=== PATIENT | female | born 1945 | race Caucasian/White ===

== ENCOUNTER 2021-02-22 02:25 | Outpatient (CLI) | payer MEDICARE, OTHER, SELFPAY | END 2021-02-22 02:26 | disposition home or self-care (01) | PROVIDERS: PCP Student in an Organized Health Care Education/Training Program; Visit Provider Student in an Organized Health Care Education/Training Program | DX: R51.9 Headache, unspecified (principal) | CPT/HCPCS: 94762 ==

== ENCOUNTER → 2022-12-19 01:04 | Outpatient (CLI) | payer MEDICARE, SELFPAY ==
--- NOTE | 2022-12-19 10:15 | DI.DEXA_ITS ---
Exam(s) XR DEXA BONE DENSITY W/WO ANNE EXAM: XR DEXA BONE DENSITY W/WO ANNE CLINICAL HISTORY: Evaluate bone density,screening for osteoporosis in postmenopausal woman, TECHNIQUE: [employer] densitometer analysis of left hip and right forearm. Lateral survey i mage of the thoracic and lumbar spine. COMPARISON: No exams were available for comparison FINDINGS: Lateral view of the thoracic and lumbar spine shows no evidence of compression fractures. Posterio r fusion hardware noted at L4-5. Spine was not analyzed. Spinal stimulator noted in the mid thoraci c region. Bone mineral density measurements of the left hip correspond to a total T-score of -0.3. The femora l neck T-score is 0.7, in the normal range.. Theright forearm bone mineral density measurements correspond to a T-score of the distal 3rd of -2.1 , in the osteopenic range. IMPRESSION: Normal bone mineral density of the hip. Osteopenia of the forearm.
== END ==
PROVIDERS: PCP Student in an Organized Health Care Education/Training Program; Visit Provider Student in an Organized Health Care Education/Training Program
DX: Z13.820 Encounter for screening for osteoporosis (principal); Z78.0 Asymptomatic menopausal state; M81.0 Age-related osteoporosis without current pathological fracture
CPT/HCPCS: 77080

== ENCOUNTER → 2023-09-23 12:07 | Outpatient (BNVA) | payer MEDICARE, SELFPAY | PROVIDERS: PCP Student in an Organized Health Care Education/Training Program; Referring Provider Student in an Organized Health Care Education/Training Program; Visit Provider Student in an Organized Health Care Education/Training Program | DX: J44.9 Chronic obstructive pulmonary disease, unspecified (principal); C50.919 Malignant neoplasm of unspecified site of unspecified female breast; C79.51 Secondary malignant neoplasm of bone; G47.34 Idiopathic sleep related nonobstructive alveolar hypoventilation; G47.61 Periodic limb movement disorder | CPT/HCPCS: 99214 ==

== ENCOUNTER → 2023-10-29 15:30 | Outpatient (CLI) | payer MEDICARE, SELFPAY ==
--- NOTE | 2023-10-29 15:45 | DI.RAD_ITS ---
Exam(s) XR CHEST 2V PA LATERAL EXAM: XR CHEST 2V PA LATERAL CLINICAL HISTORY: chemo patient, low grade T, cough R05.9 COUGH R09.89 RESPIRATORY SYMPTOMS TECHNIQUE: 2D digital imaging was performed of the chest. Two images were obtained. PA and lateral views were obtained. COMPARISON: No exams were available for comparison FINDINGS: MEDIASTINUM: Normal. HEART: Normal. PULMONARY VASCULATURE: Normal. LUNGS: No focal consolidating infiltrates are present. There is an ovoid density seen at the lateral aspect of the left hemithorax corresponding to a nodule projected over the anterior aspect of the he art on the lateral view. This may be intraparenchymal versus related to the rib. There are no prior s for comparison. PLEURAL SPACE: No pleural effusion or pneumothorax. BONE:Within normal limits for the patient's age. OTHER FINDINGS:There is a nerve stimulator device. IMPRESSION: 1. No focal infiltrates are present. 2. Ovoid density projected of the lateral aspect of the hemithorax on the AP view and anteriorly loca massimo on the lateral view. This may be associated with the rib versus an intraparenchymal mass. If th ere are prior films, they may be submitted for comparison. Alternatively, a noncontrast CT scan of t he chest may be obtained for further evaluation. DATA REPOSITORY: RADIATION DOSE DELIVERED:
== END ==
PROVIDERS: PCP Student in an Organized Health Care Education/Training Program; Visit Provider Nurse Practitioner
DX: R05.9 Cough, unspecified (principal); R09.89 Other specified symptoms and signs involving the circulatory and respiratory systems
CPT/HCPCS: 71046

== ENCOUNTER 2023-10-29 16:32 | Outpatient (REF) | payer MEDICARE, SELFPAY ==
[2023-10-29 20:46] LABS: COVID-19 PCR Negative (Negative); Influenza A PCR Negative (Negative); Influenza B PCR Negative (Negative); RSV PCR Negative (Negative)
[2023-10-29 20:47] LABS: Source NASOPHARYNX
== END 2023-10-29 16:33 | disposition home or self-care (01) ==
LOC: LBN 16:32
PROVIDERS: PCP Student in an Organized Health Care Education/Training Program; Visit Provider Nurse Practitioner
DX: R50.9 Fever, unspecified (principal); R09.89 Other specified symptoms and signs involving the circulatory and respiratory systems; R05.9 Cough, unspecified; R10.2 Pelvic and perineal pain
CPT/HCPCS: 87637

== ENCOUNTER 2023-11-10 15:00 | Outpatient (REF) | payer MEDICARE, SELFPAY | END 2023-11-10 15:01 | disposition home or self-care (01) | LOC: LBN 15:00 | PROVIDERS: PCP Student in an Organized Health Care Education/Training Program; Visit Provider Family Medicine | DX: R30.0 Dysuria (principal); R39.89 Other symptoms and signs involving the genitourinary system; R10.9 Unspecified abdominal pain | CPT/HCPCS: 87086 ==

== ENCOUNTER 2023-11-28 12:29 | Outpatient (CLI) | payer MEDICARE, SELFPAY ==
--- NOTE | 2023-11-28 12:15 | DI.RAD_ITS ---
Exam(s) XR CHEST 2V PA LATERAL EXAM: XR CHEST 2V PA LATERAL CLINICAL HISTORY: R05.9 Cough,B99.9 Infectious DX unspecified,eval for any sign of infection TECHNIQUE: 2D digital imaging was performed. Two views. COMPARISON: CR XR CHEST 2V PA LATERAL from 10/29/2023 FINDINGS: HEART: Normal size. Aorta: Not dilated. PULMONARY VASCULATURE: Normal. MEDIASTINUM: Unremarkable. LUNGS: Clear. PLEURAL SPACE: No pleural effusion or pneumothorax. BONE:Unremarkable for age. SOFT TISSUES: Spinal stimulator lead in mid thoracic spine. Surgical clips left anterior chest wall. IMPRESSION: No acute abnormality. DATA REPOSITORY: RADIATION DOSE DELIVERED:
--- NOTE | 2023-11-28 12:15 | DI.RAD_ITS ---
Exam(s) XR HIP LT COMPLETE AP PELVIS EXAM: XR HIP LT COMPLETE AP PELVIS CLINICAL HISTORY: M25.552 Pain LT hip, r/o mets - hx breast ca w/alvaro mets to iliacs. TECHNIQUE: 2D digital imaging was performed. Two views. COMPARISON: CR XR DEXA BONE DENSITY W/WO ANNE from 12/19/2022 FINDINGS: BONES: No acute fracture is present. Lytic lesion seen on lateral view in upper left femoral shaft. It measures roughly 5 x 1.5 cm. No additional lytic lesions are visible. Stimulator device overli es right iliac crest. Posterior fusion hardware noted at L4-5. JOINTS: No dislocation present. The hip joint spaces are maintained. SOFT TISSUE: Normal. IMPRESSION: Lytic lesion upper left femoral shaft. No evidence of pathologic fracture. DATA REPOSITORY: RADIATION DOSE DELIVERED:
== END 2023-11-28 12:49 ==
LOC: DI 12:30
PROVIDERS: PCP Student in an Organized Health Care Education/Training Program; Visit Provider Nurse Practitioner Family
DX: M89.8X8 Other specified disorders of bone, other site (principal); R05.9 Cough, unspecified
CPT/HCPCS: 36415; 80048; 80061; 82306; 84145; 87040; 71046; 73502; 81003; 81015; 84443; 85025

== ENCOUNTER 2023-11-28 12:30 | Outpatient (CLI) | payer MEDICARE, SELFPAY ==
[2023-11-28 10:30] LABS: Absolute Basophil Count 0.02 10^3/uL (0.0-0.2); Absolute Lymphocyte Count 0.65 10^3/uL (1.2-3.4); Absolute Monocyte Count 0.25 10^3/uL (0.1-0.8); Absolute Neutrophil Count 0.78 10^3/uL (1.2-6.7); Basophils % 1.2 %; HCT 28.1 % (36.0-46.0); HGB 9.4 g/dL (11.2-15.7); Lymphocytes % 38.2 %; MCH 32.3 pg (27.0-33.0); MCHC 33.5 % (32.0-36.0); MCV 97 fL (80-95); MPV 8.9 fL (8.0-11.0); Monocytes % 14.7 %; Neutrophils % 45.9 %; Platelet Count 179 10^3/uL (130-400); RBC 2.91 10^6/uL (3.93-5.22); RDW 17.4 % (11.7-14.6); RDW-SD 57.3 fL
[2023-11-28 10:30] LABS: Bilirubin Negative (Negative); Blood Negative (Negative); Clarity Clear (Clear); Glucose Negative (Negative); Ketones Negative (Negative); Leukocyte Esterase Negative (Negative); Nitrite Negative (Negative); Specific Gravity >= 1.030 (1.005-1.025); Urobilinogen 0.2 mg/dL (Up to 0.2); pH 5.5 (5-8)
[2023-11-28 10:43] LABS: Diff Comment Agrees w/ Instrument; RBC Morphology Normal
[2023-11-28 10:52] LABS: Bacteria Few HPF (Negative); Epithelial Cells Moderate HPF (Negative); RBC 0-2 HPF (0-2)
[2023-11-28 10:53] LABS: C & S Indicated? No; Casts 0-2 Hyaline LPF (Negative); Crystals Rare Calcium Oxalate HPF (Negative); Mucus Negative (Negative)
[2023-11-28 11:04] LABS: Procalcitonin < 0.1 ng/mL
[2023-11-28 11:08] LABS: Anion Gap 7.2 mmol/L (3-11); BUN 19 mg/dL (7-18); CO2 28.8 mmol/L (21.0-32.0); CREATININE 1.2 mg/dL (0.55-1.02); Calcium 9.7 mg/dL (8.5-10.1); Calculated LDL 68 mg/dL (<100); Chloride 108 mmol/L (98-107); Cholesterol 148 mg/dL (<200); Estimated GFR 46.05 (mL/min/1.73m2); Glucose 110 mg/dL (74-106); HDL Cholesterol 46 mg/dL (40-60); Potassium 3.4 mmol/L (3.5-5.1); Sodium 144 mmol/L (136-145); TSH (W/Ref FT4) 3.46 uIU/mL (0.36-3.74); Triglyceride 172 mg/dL (<150); Vitamin D 25 Total 42.9 ng/mL (30-100)
== END 2023-11-28 12:31 | disposition home or self-care (01) ==
LOC: LBO 12:31
PROVIDERS: PCP Student in an Organized Health Care Education/Training Program; Visit Provider Student in an Organized Health Care Education/Training Program
DX: Z79.899 Other long term (current) drug therapy (principal); E87.1 Hypo-osmolality and hyponatremia; Z91.89 Other specified personal risk factors, not elsewhere classified; K90.9 Intestinal malabsorption, unspecified; M85.80 Other specified disorders of bone density and structure, unspecified site; B99.9 Unspecified infectious disease; R39.9 Unspecified symptoms and signs involving the genitourinary system; R50.9 Fever, unspecified
CPT/HCPCS: 36415; 80048; 80061; 82306; 84145; 87040; 81003; 81015; 84443; 85025

== ENCOUNTER 2023-11-30 14:53 | Emergency (ER) | payer MEDICARE, SELFPAY ==
[2023-11-30 14:57] VITALS: BP 105/69; PULSE 93; RESP 15; TEMP 37.7; O2SAT 88
--- NOTE | 2023-11-30 15:15 | DI.CT_ITS ---
Exam(s) CT PELVIC WO EXAM: CT PELVIC WO CLINICAL HISTORY: L. hip/butt pain, active breast Ca, eval fx, mets. TECHNIQUE: Imaging Protocol: Axial computed tomography images with coronal and sagittal reformatted images were created and reviewed. CONTRAST MATERIAL: Oral: / no COMPARISON: CR XR HIP LT COMPLETE AP PELVIS from 11/28/2023 FINDINGS: Exam limited by motion. Bladder: Symmetric distention, no gross wall thickening. Bowel: No obstruction or bowel wall thickening. Appendix normal. Peritoneal cavity: No ascites, collection or mesenteric inflammatory response. Reproductive: Status post hysterectomy. Bones: No acute fracture. Laminectomy defect at L4 and L5. Posterior fusion hardware at L4-L5. Sm all sclerotic focus in the left proximal femur. Mild degenerative changes at the SI joints. Soft tissues: Electronic device in soft tissues of right lower back. IMPRESSION: Small sclerotic focus in the proximal left femur. The lytic lesion seen on plain films is not includ ed in the field of view. No additional lesions. No evidence of fracture. RADIATION DOSE DELIVERED: Total DLP DATA REPOSITORY: All CT scans at this facility are submitted to the National Radiology Data Registry (NRDR) Dose Index Registry (DIR) with the [employer] (A[employer]). RADIATION OPTIMIZATION: All CT scans at this facility use at least one of these dose optimization te chniques: automated exposure control; mA and/or kV adjustment per patient size (includes targeted exa ms where dose is matched to clinical indication); or iterative reconstruction.
--- NOTE | 2023-11-30 15:30 | ED.GENADUL_ITS ---
Discharge Plan Discharge Details Chief Complaint: Nk/Back Pain Primary Care Provider: Evelia Park ED Provider: Wanda Myles Home Meds and New Rx's Prescriptions: No Action albuterol sulfate 90 mcg/actuation HFA aerosol inhaler 2 puff inhalation Q6H PRN zoledronic acid 4 mg recon soln IV Anoro Ellipta 62.5-25 mcg/actuation blister with device 1 inh inhalation DAILY Qty: 180 3RF [place] Saline 0.65 % drops 2 drp intranasal Q4H PRN (Reason: dry nasal passages) Qty: 50 1RF fulvestrant 250 mg/5 mL syringe IM cholecalciferol (vitamin D3) 125 mcg (5,000 unit) capsule 125 mcg PO DAILY Qty: 90 0RF (DME) Oxygen Tank See Rx Instructions .Route Qty: 1 0RF Rx Instructions: As directed famotidine 20 mg tablet 40 mg PO BID Qty: 360 1RF Rx Instructions: Trial increased dose atorvastatin 40 mg tablet 40 mg PO DAILY Qty: 90 3RF gabapentin 100 mg capsule See Rx Instructions .ROUTE .COMPLEX Qty: 90 3RF Dose Instruction: TAKE 1 CAPSULE DAILY AT BEDTIME Rx Instructions: TAKE 1 CAPSULE DAILY AT BEDTIME omeprazole 20 mg capsule,delayed release(DR/EC) 40 mg PO BID Qty: 360 1RF Rx Instructions: Short-term doubling Rx due to ULCERATIONS meloxicam 15 mg tablet 15 mg PO DAILY PRN (Reason: pain, inflammation) Qty: 90 1RF paroxetine HCl 10 mg tablet 10 mg PO DAILY Qty: 90 3RF Rx Instructions: increased dose benzonatate 200 mg capsule 200 mg PO TID PRN (Reason: cough) Qty: 21 0RF HPI General Mode of arrival: ambulatory . Date/Time Provider Initiated Documentation: 11/30/23 14:54 . Limitations to Documentation: no limitations . Information obtained by: patient, family and old records reviewed . HPI Narrative: MDM: In brief, this is a 78-year-old female patient presenting for evaluation of 3 days of left buttock pain in the absence of trauma in the setting of known metastatic cancer. My differential includes but is not limited to pathologic fracture, metastases to bone, certainly considered sciatica. This is most consistent with this patient's nonradiating pain. I considered metabolic and electrolyte derangement, osteomyelitis. The patient is reassuringly hemodynamically appropriate. She has no weakness, numbness, or neurodeficit to increase my concern for spinal cord injury or lesion, no evidence of DVT on physical examination, and the patient is without evidence of arterial occlusion or phlegmasia. We will proceed with laboratory studies to include CBC, CMP, and I will provide the patient with a dose of Tylenol as well as a tramadol given her historical improvement with this medication. The lytic lesion identified on x-ray of her hip obtained a few days ago may explain the patient's pain, but we will obtain a CT of the pelvis without contrast to better characterize any abnormalities or occult fractures. ED Course: The patient received the medications noted above, and at the time that I signed out care of the patient to the oncoming provider her disposition was pending completion of CT imaging read by a radiologist, as well as laboratory studies. I did independently review the CT scan, and noted no obvious fractures. All further care per the oncoming team, patient remained hemodynamically appro priate while under my care. Wanda Myles MD HPI: This is a 78-year-old female patient with a past medical history significant for breast cancer, metastatic to the bone, COPD not on supplemental oxygen, osteoarthritis and hyperlipidemia presenting for evaluation of 3 days of left buttock pain. The patient reports that this pain started all of a sudden, was not associated with any trauma or injury, and she has been unable to find a comfortable position for the last several days. She was seen by her providers and started on Percocet, which she states she cannot tolerate due to nausea and vomiting. She was also started on cyclobenzaprine, and states that she took one of her family members tramadol as that tends not to make her as nauseated. The patient states that she has not had fevers but has had occasional chills, has been eating and drinking normally but is worried that she may be dehydrated due to the vomiting that she is experienced with the Percocet. She had an x-ray performed that showed a lytic lesion in the proximal femur, patient believes that this is in an area where she had previous radiation. the patient is currently on hormonal therapy for her cancer. She reports that her pain does not radiate down her leg, is not associated with any rash or skin changes, and she does not have any numbness, tingling, or weakness distal to this pain. Exam: Gen: Awake and alert, in no apparent distress HEENT: Non-icteric sclera Neck: Supple Lungs: No apparent respiratory distress, normal respiratory effort. CV: Appears well perfused, strong and symmetrical distal pulses Abdomen: Non-distended, soft MSK: Moves 4 extremities without apparent limitation in ROM, reproduction of pain with extension of the back, palpation over the left buttocks, and movement of the left lower extremity. Skin: Visualized skin without rashes, cyanosis. Bilateral lower extremity edema of the ankles, left greater than right, at baseline per patient. Neuro: Antalgic gait, no obvious focal deficits or facial asymmetry. Full strength and sensation, symmetrical bilateral lower extremities speaks in full, clear sentences. Psych: Appropriate for situation. Related Data Home Medications ?Medication ?Instructions ?Recorded ?Confirmed sodium chloride 0.65 % nasal drops 2 drp intranasal Q4H PRN dry nasal 02/15/21 11/30/23 ([place] Saline) passages #50 mL albuterol sulfate 90 mcg/actuation 2 puff inhalation Q6H PRN 03/13/21 11/30/23 aerosol inhaler zoledronic acid 4 mg intravenous mg IV 03/13/21 11/28/23 solution Oxygen #1 ea 07/25/21 11/30/23 famotidine 20 mg tablet 40 mg (2 x 20 mg) PO BID #360 tabs 11/07/21 11/30/23 atorvastatin 40 mg tablet 40 mg PO DAILY #90 tabs 11/26/22 11/30/23 gabapentin 100 mg capsule See Rx Instructions .Route 11/28/22 11/30/23 .COMPLEX #90 caps meloxicam 15 mg tablet 15 mg PO DAILY PRN pain, 07/01/23 11/30/23 inflammation #90 tabs omeprazole 20 mg capsule,delayed 40 mg (2 x 20 mg) PO BID #360 caps 07/01/23 11/30/23 release paroxetine HCl 10 mg tablet 10 mg PO DAILY #90 tabs 07/01/23 11/30/23 umeclidinium 62.5 mcg-vilanterol 1 inh inhalation DAILY #180 ea 09/23/23 11/30/23 25 mcg/actuation powdr for inhalation (Anoro Ellipta) cholecalciferol (vitamin D3) 125 125 mcg PO DAILY #90 caps 10/16/23 11/30/23 mcg (5,000 unit) capsule fulvestrant 250 mg/5 mL mg IM For my metastatic breast 10/16/23 11/28/23 intramuscular syringe cance benzonatate 200 mg capsule 200 mg PO TID PRN cough #21 caps 10/29/23 11/30/23 Previous Rx's ?Medication ?Instructions ?Recorded sodium chloride 0.65 % nasal drops 2 drp intranasal Q4H PRN dry nasal 02/15/21 ([place] Saline) passages #50 mL Oxygen #1 ea 07/25/21 famotidine 20 mg tablet 40 mg (2 x 20 mg) PO BID #360 tabs 11/07/21 atorvastatin 40 mg tablet 40 mg PO DAILY #90 tabs 11/26/22 gabapentin 100 mg capsule See Rx Instructions .Route 11/28/22 .COMPLEX #90 caps meloxicam 15 mg tablet 15 mg PO DAILY PRN pain, 07/01/23 inflammation #90 tabs omeprazole 20 mg capsule,delayed 40 mg (2 x 20 mg) PO BID #360 caps 07/01/23 release paroxetine HCl 10 mg tablet 10 mg PO DAILY #90 tabs 07/01/23 umeclidinium 62.5 mcg-vilanterol 1 inh inhalation DAILY #180 ea 09/23/23 25 mcg/actuation powdr for inhalation (Anoro Ellipta) cholecalciferol (vitamin D3) 125 125 mcg PO DAILY #90 caps 10/16/23 mcg (5,000 unit) capsule benzonatate 200 mg capsule 200 mg PO TID PRN cough #21 caps 10/29/23 Allergies Allergy/AdvReac Type Severity Reaction Status Date / Time clavulanic acid (From Allergy Severe very ill Verified 11/28/23 10:59 Augmentin) adhesive tape Allergy Redness to Verified 11/28/23 10:59 skin erythromycin base AdvReac Intermediate nausea Verified 11/28/23 10:59 General Stated Complaint: Nk/Back Pain MIGUEL A: 4 Course Vital Signs Vital signs: Vital Signs Temperature 37.7 C H 11/30/23 14:57 Pulse 93 H 11/30/23 14:57 Respiratory Rate 15 11/30/23 14:57 Blood Pressure 105/69 11/30/23 14:57 Pulse Oximetry 88 L 11/30/23 14:57 Temperature 37.7 C H 11/30/23 14:57 Temperature Source Tympanic 11/30/23 14:57 Pulse 93 H 11/30/23 14:57 Respiratory Rate 15 11/30/23 14:57 Blood Pressure 105/69 11/30/23 14:57 Blood Pressure Position Sitting 11/30/23 14:57 Pulse Oximetry 88 L 11/30/23 14:57 Oxygen Delivery Method Room Air 11/30/23 14:57 Oxygen Flow Rate 0 11/30/23 14:57 Comment Hx of COPD, not O2 dependent. Denies shortness of breath. 11/30/23 14:57 Medical Decision Making Quality:SDOH Health Related Social Needs: No Data to Display PFSH All Active Problems (Updated 11/28/23 @ 16:03 by Manasa Mary APRN) Hip pain, left (Acute) Fever and chills (Acute) Osteopenia (Acute) Skin rash (Acute) Neck, s/p surgery, presumed 2' adhesive Periodic limb movement disorder (PLMD) (Acute) Periodontal abscess (Acute) Cyst, dental root (Acute) Nocturnal hypoxia (Acute) At risk for osteoporosis (Acute) Age, Chemo .. Onc Team started [facility]omed[facility] Infusions (DEXA Hx??) Back pain (Chronic) Long Hx, with spinal stenosis, spondylisthesis. Stim inserted, 2019. Thyroid disorder (Acute) Post excision (1/2 per pt report).. Recent atypical Bx, evaluation [ ] .. TSH WNL. Breast cancer metastasized to bone (Acute) Dx 2020, returned ductal ca of lft breast with lesions @ ribs, rt hum, left femur, pelvis. Rt hip RAD x1 has helped pain, 01/2021. 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 Re-appeared, 2020 (w/ metastases) Chronic daily headache (Acute) New onset, AM, with dissipation thru the day ... [ ] PulsOx, Humid, Tyl GERD (gastroesophageal reflux disease) (Chronic) Depression (Chronic) Rosacea (Chronic) COPD (chronic obstructive pulmonary disease) (Chronic) 2' chronic bronchitis (Pulm Dx), Anoro Ellipta x 3 yrs. (Short-term Hx smkg). Hyperlipidemia (Chronic) Osteoarthritis (Chronic) Medical History (Updated 11/28/23 @ 16:03 by Manasa Mary APRN) History of breast cancer Surgical History (Updated 12/27/21 @ 13:02 by Lori Shoemaker RN, RN) H/O endoscopy 11/29/21 at [place] Status post insertion of spinal cord stimulator (2019) [facility] - Dr. Barrett Status post laminectomy with spinal fusion (2019) [place], [place] History of total bilateral knee replacement (2006) [facility] - Dr. Irizarry Hx of total mastectomy of left breast (1998) [facility] History of total hysterectomy (1987) [facility] - Dr. Genevieve Goins Family History Mother Cancer Paternal Grandmother Cancer Brother Depression Heart disease Maternal Aunt Diabetes Father Heart disease Maternal Grandfather Heart disease Hypertension Social History Smoking/Tobacco Use Status: Former Tobacco Use Quit Date: 04/07/87 Tobacco: How many years used: 25 Quit status: quit date established Smoking risk assessment performed?: Yes Alcohol Intake: current Alcohol Intake frequency: a few times a month Drug use: Never Substance use type: does not use Adopted: No Foster care: No Household members: spouse Housing: house Number of Children: 2 number of grandchildren: 1 Communication Needs: None Education Level: high school Do you need help understanding health information?: Never current occupation: Homemaker Pets and animals: No Sexually active: Yes Do you think of yourself as: straight/heterosexual Current gender identity: female What is your relationship status?: How often do you talk on the phone with friends or family?: three or more times per week How often do you get together with friends or relatives?: three or more times per week Do you belong to any clubs or organized social groups?: no Panel score (0-1 are the most socially isolated patients): 2 What type of physical activity do you participate in: occasional exercise Special eber needs: No Seatbelt use: always Drive intox or ride w/intox electric screw driver operator: No Sign Out Sign Out Data: Sign Out Comment: 78-year-old female patient with a history of metastatic breast cancer, COPD not on supplemental O2, presenting with 3 days of buttock pain, left. Seen by her providers, provided with a muscle relaxer and Percocet (Percocet makes her vomit, only tolerates tramadol). I also did an x-ray that s howed a lytic lesion in her proximal femur, patient unsure if this is new or if it represents an area of previous radiation therapy. CT obtained, no occult fractures by my read, waiting formal radiology read. Follow-up labs, and ongoing pain management needs. Last updated by Wanda Myles MD at 11/30/23 16:34
[2023-11-30] MEDS: Lactated Ringers 1,000 ML 1000 ML IV (16:20)
[2023-11-30] MEDS: Acetaminophen 500 MG TAB 1000 MG PO (16:20)
[2023-11-30 16:21] LABS: Abs Immature Grans 0.02 10^3/uL (0.0-0.06); HCT 28.1 % (36.0-46.0); HGB 9.3 g/dL (11.2-15.7); MCH 32.3 pg (27.0-33.0); MCHC 33.1 % (32.0-36.0); MCV 98 fL (80-95); MPV 8.7 fL (8.0-11.0); Platelet Count 146 10^3/uL (130-400); RBC 2.88 10^6/uL (3.93-5.22); RDW 17.8 % (11.7-14.6); RDW-SD 61.3 fL; WBC 6.09 10^3/uL (4.4-10.8)
[2023-11-30] MEDS: traMADol 50 MG TAB PO (16:21)
[2023-11-30 16:36] LABS: ALT 17 U/L (14-59); AST 10 U/L (15-37); Albumin 3.4 g/dL (3.4-5.0); Alkaline Phosphatase 75 U/L (46-116); Anion Gap 10.1 mmol/L (3-11); BUN 14 mg/dL (7-18); Bilirubin, Total 0.48 mg/dL (0.2-1.0); CO2 26.9 mmol/L (21.0-32.0); CREATININE 1.2 mg/dL (0.55-1.02); Chloride 102 mmol/L (98-107); Estimated GFR 46.05 (mL/min/1.73m2); Glucose 134 mg/dL (74-106); Magnesium 1.4 mg/dL (1.8-2.4); Potassium 3.3 mmol/L (3.5-5.1); Sodium 139 mmol/L (136-145); Total Protein 7.3 g/dL (6.4-8.2)
[2023-11-30 16:44] LABS: Absolute Lymphocyte Count 0.73 10^3/uL (1.2-3.4); Absolute Monocyte Count 0.49 10^3/uL (0.1-0.8); Absolute Neutrophil Count 4.87 10^3/uL (1.2-6.7); Bands % 5 %; Diff Comment Manual Differential
[2023-11-30 16:45] LABS: Hypochromasia 1+
[2023-11-30 16:54] VITALS: BP 132/45; PULSE 88; RESP 16
--- NOTE | 2023-11-30 17:23 | DI.VRAD_ITS ---
PROCEDURE INFORMATION: Exam: CT Pelvis Without Contrast, Skeleton Exam date and time: 11/30/2023 3:51 PM Age: 78 years old Clinical indication: Other: L. Hip/butt pain, active breast CA, eval FX, mets TECHNIQUE: Imaging protocol: Computed tomography of the pelvis without contrast. Exam focused on the skeleton. Radiation optimization: All CT scans at this facility use at least one of these dose optimization techniques: automated exposure control; mA and/or kV adjustment per patient size (includes targeted exams where dose is matched to clinical indication); or iterative reconstruction. COMPARISON: CR XR HIP LT COMPLETE AP PELVIS 11/28/2023 12:44 PM FINDINGS: Bones/joints: Postsurgical changes at L4-L5 No acute fracture. No dislocation. Severe foraminal stenosis at L3-L4 and L5-S1 Soft tissues: Postsurgical changes in the paraspinous musculature. Neural stimulator noted Prior hysterectomy Moderate to large stool in the colon IMPRESSION: No acute findings. No CT evidence for metastatic disease on the given images Question constipation Dictated and Authenticated by: Blade Mcneill MD. Ordering:BECKA Subramanian MD
--- NOTE | 2023-11-30 17:32 | W.EDPROG ---
Date of service: 11/30/23 Time of Service: 17:32 Medical Decision Making Patient signed out to me pending CT read which is read as negative. Patient is stable and feels significantly better and is bearing weight with no issues. Will provide a short course of tramadol and she has follow-up with her PCP on , return precautions given Quality:SDOH Health Related Social Needs: No Data to Display Sign Out Sign Out Data: Sign Out Comment: 78-year-old female patient with a history of metastatic breast cancer, COPD not on supplemental O2, presenting with 3 days of buttock pain, left. Seen by her providers, provided with a muscle relaxer and Percocet (Percocet makes her vomit, only tolerates tramadol). I also did an x-ray that showed a lytic lesion in her proximal femur, patient unsure if this is new or if it represents an area of previous radiation therapy. CT obtained, no occult fractures by my read, waiting formal radiology read. Follow-up labs, and ongoing pain management needs. Last updated by Wanda Myles MD at 11/30/23 16:34 Discharge Plan Disposition Patient Disposition: Home Condition: Stable Discharge Details Clinical Impression: Acute pain of left hip Primary Care Provider: Evelia Park ED Provider: Bora Mars Home Meds and New Rx's Prescriptions: New tramadol 50 mg tablet 50 mg PO TID PRNQty: 12 0RF Continued albuterol sulfate 90 mcg/actuation HFA aerosol inhaler 2 puff inhalation Q6H PRN zoledronic acid 4 mg recon soln IV Anoro Ellipta 62.5-25 mcg/actuation blister with device 1 inh inhalation DAILY Qty: 180 3RF [place] Saline 0.65 % drops 2 drp intranasal Q4H PRN (Reason: dry nasal passages) Qty: 50 1RF fulvestrant 250 mg/5 mL syringe IM cholecalciferol (vitamin D3) 125 mcg (5,000 unit) capsule 125 mcg PO DAILY Qty: 90 0RF (DME) Oxygen Tank See Rx Instructions .Route Qty: 1 0RF Rx Instructions: As directed famotidine 20 mg tablet 40 mg PO BID Qty: 360 1RF Rx Instructions: Trial increased dose atorvastatin 40 mg tablet 40 mg PO DAILY Qty: 90 3RF gabapentin 100 mg capsule See Rx Instructions .ROUTE .COMPLEX Qty: 90 3RF Dose Instruction: TAKE 1 CAPSULE DAILY AT BEDTIME Rx Instructions: TAKE 1 CAPSULE DAILY AT BEDTIME omeprazole 20 mg capsule,delayed release(DR/EC) 40 mg PO BID Qty: 360 1RF Rx Instructions: Short-term doubling Rx due to ULCERATIONS meloxicam 15 mg tablet 15 mg PO DAILY PRN (Reason: pain, inflammation) Qty: 90 1RF paroxetine HCl 10 mg tablet 10 mg PO DAILY Qty: 90 3RF Rx Instructions: increased dose benzonatate 200 mg capsule 200 mg PO TID PRN (Reason: cough) Qty: 21 0RF Discharge Instructions Additional Instructions: your CAT scan did not show any broken bones or other significant concerning findings Follow-up with your primary care provider as scheduled If you feel more ill or have new symptoms such as high fevers return to the emergency department for reevaluation
[2023-11-30 17:48] VITALS: BP 138/52; PULSE 80; RESP 16; TEMP 36.6; O2SAT 98
== END 2023-11-30 17:57 | disposition home or self-care (01) ==
PROVIDERS: Emergency Medicine; Emergency Provider Emergency Medicine; PCP Student in an Organized Health Care Education/Training Program
DX: M79.18 Myalgia, other site (principal); M54.50 Low back pain, unspecified; C50.912 Malignant neoplasm of unspecified site of left female breast; C79.51 Secondary malignant neoplasm of bone; J44.9 Chronic obstructive pulmonary disease, unspecified; E78.5 Hyperlipidemia, unspecified; M19.90 Unspecified osteoarthritis, unspecified site; Z79.899 Other long term (current) drug therapy
CPT/HCPCS: 00123; 80053; 96360; 99284; 72192; 83735; 85025

== ENCOUNTER 2023-12-04 20:01 | Outpatient (REF) | payer MEDICARE, SELFPAY | END 2023-12-04 20:02 | disposition home or self-care (01) | LOC: LBN 20:01 | PROVIDERS: PCP Student in an Organized Health Care Education/Training Program; Visit Provider Student in an Organized Health Care Education/Training Program | DX: R50.9 Fever, unspecified (principal); R09.3 Abnormal sputum | CPT/HCPCS: 87070; 87205 ==

== ENCOUNTER → 2024-05-19 13:05 | Outpatient (BNVA) | payer MEDICARE, SELFPAY | PROVIDERS: PCP Nurse Practitioner Family; Referring Provider Student in an Organized Health Care Education/Training Program; Visit Provider Podiatrist | DX: L60.2 Onychogryphosis (principal); R60.0 Localized edema; L84 Corns and callosities; I87.2 Venous insufficiency (chronic) (peripheral); Z98.890 Other specified postprocedural states; R23.8 Other skin changes | CPT/HCPCS: 99213 ==

== ENCOUNTER → 2024-10-21 13:55 | Outpatient (BNVA) | payer MEDICARE, SELFPAY | PROVIDERS: PCP Nurse Practitioner Family; Referring Provider Student in an Organized Health Care Education/Training Program; Visit Provider Physician Assistant Surgical | DX: J44.9 Chronic obstructive pulmonary disease, unspecified (principal); G47.34 Idiopathic sleep related nonobstructive alveolar hypoventilation; G47.61 Periodic limb movement disorder; C50.919 Malignant neoplasm of unspecified site of unspecified female breast; C79.51 Secondary malignant neoplasm of bone | CPT/HCPCS: 99214 ==